=== PATIENT | female | born 2000 | race Caucasian/White ===

== ENCOUNTER 2020-02-11 15:28 | Outpatient (CLI) | payer OTHER, MEDICAID ==
[~2020-02-11] VITALS: Ht 162.6 cm; Wt 90.9 kg
[2020-02-11 16:09] VITALS: BP 119/71
[2020-02-11 16:25] LABS: MICROSCOPIC NOT IND
== END 2020-02-11 18:10 | disposition home or self-care (01) ==
LOC: LDOP 15:28
PROVIDERS: ATTEND Obstetrics & Gynecology
DX: O26.893 Other specified pregnancy related conditions, third trimester (principal); R10.9 Unspecified abdominal pain; Z3A.30 30 weeks gestation of pregnancy
CPT/HCPCS: 59025; 81003; 87086

== ENCOUNTER → 2020-04-08 | Outpatient (CLI) | payer OTHER, MEDICAID | END | disposition home or self-care (01) | LOC: RAD 14:54 | PROVIDERS: ATTEND Obstetrics & Gynecology | DX: Z36.2 Encounter for other antenatal screening follow-up (principal); Z3A.39 39 weeks gestation of pregnancy | CPT/HCPCS: 76815 ==